=== PATIENT | female | born 1995 | race Caucasian/White ===

== ENCOUNTER 2019-09-17 05:12 | Emergency (ER) | payer BC, OTHER ==
[~2019-09-17] VITALS: Ht 165.1 cm; Wt 93.0 kg
[2019-09-17] MEDS ORDERED: LIDOCAINE 1% HCL (LOCAL ANESTH.) INJ 20ML MDV ONE (06:43)
[2019-09-17] MEDS ORDERED: methylPREDNISolone SOD SUCC 125 MG/2 ML VL IM ONE (06:45)
[2019-09-17] MEDS ORDERED: cefTRIAXone SOD 1,000 MG VL IM ONE (06:45)
[2019-09-17 06:52] VITALS: BP 134/85
== END 2019-09-17 07:12 | disposition home or self-care (01) ==
LOC: ER 05:12
DX: J03.90 Acute tonsillitis, unspecified (principal); Z91.013 Allergy to seafood
CPT/HCPCS: 96372; 99284; J0696; J2001; J2930